=== PATIENT | female | born 1950 | race African-American/Black ===

== ENCOUNTER 2017-05-22 14:26 | Emergency (ER) | payer BC, MEDICAID ==
[~2017-05-22] VITALS: Ht 165.1 cm; Wt 70.9 kg
[~2017-05-22 14:26] MED LIST: ADV250 IH; ASPI-1182 PO; FOLI1TAB15 PO; HUM3INSU SQ; INS7030UN SQ; ISOS30TA11 PO; METF500T4 PO; METO25 PO; PERCT PO; ROSU20 PO; VALS160T2 PO
[2017-05-22 15:23] LABS: GLUCOSE,POINT OF CARE 99 MG/DL (70-110)
[2017-05-22] MEDS ORDERED: DEXTROSE 50%-WATER 25 GM/50 ML SYRINGE IVP ONE (15:30)
[2017-05-22 16:02] LABS: GLUCOSE,POINT OF CARE 231 MG/DL (70-110)
[2017-05-22 17:03] LABS: GLUCOSE,POINT OF CARE 252 MG/DL (70-110)
[2017-05-22 17:37] LABS: GLUCOSE,POINT OF CARE 225 MG/DL (70-110)
[2017-05-22 17:49] LABS: BASOPHILS % (AUTO) 0.4 % (0.0-2.0); EOSINOPHILS % (AUTO) 0.1 % (1.0-6.0); LYMPHOCYTES # (AUTO) 1.3 K/uL (1.0-4.8); LYMPHOCYTES % (AUTO) 14.9 % (22.0-44.0); MEAN CORPUSCULAR HEMOGLOBIN 30.2 pg (26.0-34.0); MEAN CORPUSCULAR HGB CONC 33.5 G/dL (31.0-37.0); MEAN CORPUSCULAR VOLUME 90 fL (80-100); MONOCYTES # (AUTO) 0.3 K/uL (0.1-1.0); MONOCYTES % (AUTO) 3.8 % (2.0-9.0); NEUTROPHILS # (AUTO) 7.1 K/uL (1.8-7.7); NEUTROPHILS % (AUTO) 80.8 % (40.0-70.0); PLATELET COUNT (AUTO) 205 K/uL (150-450); RED BLOOD CELL COUNT(AUTO) 3.98 MIL/uL (4.00-5.20); RED CELL DISTRIBUTION WIDTH 13.2 % (11.5-14.5)
[2017-05-22 18:03] LABS: CALCIUM, TOTAL 8.8 mg/dL (8.8-10.5); CREATININE 1.11 mg/dL (0.60-1.30); POTASSIUM 3.4 mmol/L (3.5-5.1)
[2017-05-22 18:09] LABS: ALBUMIN 3.3 g/dL (3.4-5.0); BILIRUBIN,TOTAL 0.3 mg/dL (0.1-1.0); TOTAL PROTEIN, SERUM 7.9 g/dL (6.4-8.2)
[2017-05-22 18:11] VITALS: BP 137/68
[2017-05-22 18:18] LABS: GLUCOSE,POINT OF CARE 257 MG/DL (70-110)
== END 2017-05-22 18:50 | disposition home or self-care (01) ==
LOC: EMS 14:27
DX: E11.649 Type 2 diabetes mellitus with hypoglycemia without coma (principal); I10 Essential (primary) hypertension; E78.00 Pure hypercholesterolemia, unspecified; E11.9 Type 2 diabetes mellitus without complications; I25.10 Atherosclerotic heart disease of native coronary artery without angina pectoris; Z79.4 Long term (current) use of insulin
CPT/HCPCS: 82962; 96374; 99284

== ENCOUNTER 2021-08-12 20:50 | Inpatient (IN) | payer MEDICARE, MEDICAID ==
[~2021-08-12] VITALS: Ht 157.5 cm; Wt 53.2 kg
[~2021-08-12 20:50] MED LIST changes: +7030E SQ; -ASPI-1182 PO; +ASPI-1444 PO; -INS7030UN SQ; +METF-1211 PO; -METF500T4 PO; -ROSU20 PO; +ROSU20TA73 PO
[2021-08-12 22:08] LABS: BASOPHILS % (AUTO) 0.1 % (0.0-2.0); EOSINOPHILS % (AUTO) 0 % (1.0-6.0); HEMATOCRIT 45.1 % (36-46); LYMPHOCYTES # (AUTO) 0.7 K/uL (1.0-4.8); MEAN CORPUSCULAR HEMOGLOBIN 30.3 pg (26.0-34.0); MEAN CORPUSCULAR HGB CONC 31.2 G/dL (31.0-37.0); MEAN CORPUSCULAR VOLUME 97 fL (80-100); MONOCYTES # (AUTO) 0.8 K/uL (0.1-1.0); MONOCYTES % (AUTO) 4.5 % (2.0-9.0); NEUTROPHILS # (AUTO) 16.6 K/uL (1.8-7.7); PLATELET COUNT (AUTO) 125 K/uL (150-450); RED BLOOD CELL COUNT(AUTO) 4.64 MIL/uL (4.00-5.20); RED CELL DISTRIBUTION WIDTH 13.9 % (11.5-14.5)
[2021-08-12 22:09] LABS: NEUTROPHILS % (AUTO) 91.4 % (40.0-70.0)
[2021-08-12 22:10] LABS: COVID AG,FIA SOURCE NASAL SWAB
[2021-08-12 22:13] LABS: ANION GAP 29 mmol/L (8-16); CALCIUM, TOTAL 10.9 mg/dL (8.8-10.5); CARBON DIOXIDE 21 mmol/L (22-29); CHLORIDE 96 mmol/L (98-107); CREATININE 2.89 mg/dL (0.60-1.30); GLOMERULAR FILTR. RATE CALC 20 mL/min (>60); POTASSIUM 4.3 mmol/L (3.5-5.1); SODIUM SERUM 146 mmol/L (136-145); UREA NITROGEN, BLOOD 53 mg/dL (7-18)
[2021-08-12] MEDS ORDERED: INSULIN REGULAR, HUMAN 100 UNITS/ML IVP ONE ×2 (22:15→23:45)
[2021-08-12] MEDS ORDERED: SODIUM CHLORIDE 0.9% 2,000 ML IV ONE (22:15)
[2021-08-12 22:22] LABS: INR 1.1 (0.9-1.1); PROTHROMBIN TIME 11.4 SEC (9.4-11.6)
[2021-08-12 22:28] LABS: LACTIC ACID 3.9 mmol/L (0.4-2.0)
[2021-08-12 22:30] LABS: ABG BASE EXCESS -9.1 mmol/L (-2.0-3.0); ABG CARBOXYHEMOGLOBIN 0.2 % (0.0-1.5); ABG HCO3 17.8 mmol/L (22.0-26.0); ABG METHEMOGLOBIN 0.3 % (0.0-1.5); ABG OXYGEN CONTENT 18.7 mL/dL (15.0-23.0); ABG OXYGEN SATURATION 96.3 % (95.0-98.0); ABG OXYHEMOGLOBIN 95.8 % (94.0-100.0); ABG PCO2 36 mmHg (35-45); ABG PH 7.299 (7.35-7.450); ABG TOTAL HEMOGLOBIN 13.8 G/dL (12.0-18.0); PO2, ARTERIAL BG 92.9 mmHg (79.0-87.0); SOURCE, BLOOD GAS ARTERIAL; TEMPERATURE, FAHRENHEIT, BG 97.8 FAHREN (96.0-98.6)
[2021-08-12 22:31] LABS: SITE, BLOOD GAS RT BRACHIAL
[2021-08-12 22:31] LABS: AMMONIA < 10 umol/L (11-32)
[2021-08-12 22:32] LABS: GLUCOSE,RANDOM 1143 mg/dL (70-110)
[2021-08-12 22:43] LABS: ALANINE AMINOTRANSFERASE 36 U/L (12-78); ALKALINE PHOSPHATASE 132 U/L (46-116); ASPARTATE AMINOTRANSFERASE 52 U/L (15-37); BILIRUBIN,TOTAL 0.6 mg/dL (0.1-1.0)
[2021-08-12 22:44] LABS: ALBUMIN 4.6 g/dL (3.4-5.0); B-TYPE NATRIURETIC PEPTIDE 29 pg/mL (0-100); CREATINE KINASE, TOTAL ONLY 495 U/L (26-192); TOTAL PROTEIN, SERUM 10.2 g/dL (6.4-8.2)
[2021-08-12 22:51] LABS: GLUCOMETER DEV NAME(LOC) ERT.5; GLUCOSE,POINT OF CARE > 600 MG/DL (70-110)
[2021-08-12] MEDS ORDERED: SODIUM CHLORIDE 0.45% 1,000 ML IV PRN (23:45)
[2021-08-12] MEDS ORDERED: SODIUM CHLORIDE 0.9% 1,000 ML IV SCH (23:45)
[2021-08-12] MEDS ORDERED: DEXTROSE 50%-WATER 25 GM/50 ML SYRINGE IVP PRN (23:45)
[2021-08-12] MEDS ORDERED: INSULIN REGULAR, HUMAN 100 UNITS in SODIUM CHLORIDE 0.9% 99 ML IV PRN ×2 (23:45)
[2021-08-12] MEDS ORDERED: POTASSIUM CHL 20 MEQ/0.45% NS 1,000 ML IV PRN (23:45)
[2021-08-12] MEDS ORDERED: DEXTROSE 5%-0.45% SODIUM CHL 1,000 ML IV PRN (23:45)
[2021-08-12] MEDS ORDERED: POTASSIUM CHLORIDE 40 MEQ in SODIUM CHLORIDE 0.45% 1,000 ML IV PRN (23:45)
[2021-08-12] MEDS ORDERED: ONDANSETRON HCL 4 MG/2 ML VIAL IVP PRN (23:45)
[2021-08-13 00:11] LABS: GLUCOMETER DEV NAME(LOC) ERT.5; GLUCOSE,POINT OF CARE > 600 MG/DL (70-110)
[2021-08-13 00:26] LABS: APPEARANCE,URINE CLEAR (CLEAR); BILIRUBIN,URINE NEGATIVE (NEGATIVE); GLUCOSE, URINE (UA) >=1000 mg/dL (NEGATIVE); LEUKOCYTE ESTERASE ,URINE NEGATIVE (NEGATIVE); NITRATE,URINE NEGATIVE (NEGATIVE); OCCULT BLOOD,URINE LARGE (NEGATIVE); PROTEIN,URINE 30-70 mg/dL (NEGATIVE); UROBILINOGEN,URINE <=1.0 mg/dL (<=1.0)
[2021-08-13 00:32] LABS: AMPHET/METH SCREEN,URINE NEGATIVE (NEGATIVE); BARBITURATE SCREEN, URINE NEGATIVE (NEGATIVE); BENZODIAZEPINES SCREEN,URINE NEGATIVE (NEGATIVE); CANNABINOID SCREEN,URINE NEGATIVE (NEGATIVE); COCAINE SCREEN,URINE NEGATIVE (NEGATIVE); METHADONE SCREEN, URINE NEGATIVE (NEGATIVE); OPIATE SCREEN,URINE NEGATIVE (NEGATIVE)
[2021-08-13 00:35] LABS: PHENCYCLIDINE SCREEN,URINE NEGATIVE (NEGATIVE)
[2021-08-13 00:53] LABS: BACTERIA,URINE Rare /HPF (None Seen); SQUAMOUS EPITHELIAL CELL,UR Rare /LPF (None Seen)
[2021-08-13] MEDS: HEPARIN SODIUM,PORCINE 5,000 UNITS/ML VIAL SQ SCH ×3 (00:53→16:00)
[2021-08-13 00:54] LABS: AMORPHOUS SEDIMENT,UR Rare /LPF (None Seen)
[2021-08-13] MEDS ORDERED: CefTRIAXone 1 GM/DEXTROSE 50 ML IV SCH (01:00)
[2021-08-13 01:07] LABS: CALCIUM, TOTAL 9.3 mg/dL (8.8-10.5); CREATININE 2.37 mg/dL (0.60-1.30); POTASSIUM 3.3 mmol/L (3.5-5.1)
[2021-08-13] MEDS ORDERED: *CLINICAL-CEFEPIME DOSING CLINICAL ONE (01:15)
[2021-08-13] MEDS ORDERED: VANCOMYCIN HCL 1.25 GM in DEXTROSE 5%-WATER 250 ML IV ONE (02:00)
[2021-08-13] MEDS ORDERED: VANCOMYCIN 1GM/WATER(PEG/NADA) 200 ML IV PRN (02:00)
[2021-08-13 02:01] LABS: GLUCOMETER DEV NAME(LOC) ERT.5; GLUCOSE,POINT OF CARE 564 MG/DL (70-110)
[2021-08-13 02:01] LABS: GLUCOMETER DEV NAME(LOC) ERT.5; GLUCOSE,POINT OF CARE 454 MG/DL (70-110)
[2021-08-13] MEDS: INSULIN REGULAR, HUMAN 100 UNITS/ML IVP PRN ×3 (03:06→06:10)
[2021-08-13 03:16] LABS: GLUCOMETER DEV NAME(LOC) ERT.5; GLUCOSE,POINT OF CARE 468 MG/DL (70-110)
[2021-08-13 04:11] LABS: GLUCOMETER DEV NAME(LOC) ERT.5; GLUCOSE,POINT OF CARE 324 MG/DL (70-110)
[2021-08-13 05:16] LABS: GLUCOMETER DEV NAME(LOC) ERT.5; GLUCOSE,POINT OF CARE 277 MG/DL (70-110)
[2021-08-13 05:47] LABS: ALBUMIN 3.4 g/dL (3.4-5.0); BILIRUBIN,TOTAL 0.3 mg/dL (0.1-1.0); CALCIUM, TOTAL 8.9 mg/dL (8.8-10.5); CREATININE 1.67 mg/dL (0.60-1.30); MAGNESIUM 2.7 mg/dL (1.80-2.40); PHOSPHORUS 1.6 mg/dL (2.5-4.9); POTASSIUM 3.1 mmol/L (3.5-5.1); TOTAL PROTEIN, SERUM 7.9 g/dL (6.4-8.2)
[2021-08-13] MEDS: CEFEPIME HCL 1 GM in DEXTROSE 5%-WATER 50 ML IV SCH (05:54)
[2021-08-13 06:16] LABS: GLUCOMETER DEV NAME(LOC) ERT.5; GLUCOSE,POINT OF CARE 286 MG/DL (70-110)
[2021-08-13] MEDS: POTASSIUM CHLORIDE 40 MEQ in DEXTROSE 5%-WATER 1,000 ML IV SCH ×2 (07:08→14:03)
[2021-08-13 07:21] LABS: GLUCOMETER DEV NAME(LOC) ERT.5; GLUCOSE,POINT OF CARE 145 MG/DL (70-110)
[2021-08-13 08:16] LABS: GLUCOMETER DEV NAME(LOC) ERT.5; GLUCOSE,POINT OF CARE 152 MG/DL (70-110)
[2021-08-13 09:00] VITALS: BP 127/75
[2021-08-13 10:11] LABS: GLUCOMETER DEV NAME(LOC) AHU.; GLUCOSE,POINT OF CARE 144 MG/DL (70-110)
[2021-08-13 10:13] LABS: CALCIUM, TOTAL 9.2 mg/dL (8.8-10.5); CREATININE 1.46 mg/dL (0.60-1.30); POTASSIUM 3.8 mmol/L (3.5-5.1)
[2021-08-13 12:02] VITALS: BP 139/75
[2021-08-13 12:17] LABS: GLUCOSE,POINT OF CARE 154 MG/DL (70-110)
[2021-08-13 12:17] LABS: GLUCOMETER DEV NAME(LOC) AHU.; GLUCOSE,POINT OF CARE 154 MG/DL (70-110)
[2021-08-13 13:47] LABS: CREATININE 1.26 mg/dL (0.60-1.30)
[2021-08-13 14:11] LABS: GLUCOSE,POINT OF CARE 146 MG/DL (70-110)
[2021-08-13 16:00] VITALS: BP 135/71
[2021-08-13] MEDS ORDERED: POTASSIUM PHOS,M-BASIC-D-BASIC 10 MMOL in DEXTROSE 5%-WATER 100 ML IV ONE (19:00)
[2021-08-13] MEDS ORDERED: SODIUM CHLORIDE 0.9% 250 ML IV ONE (19:22)
[2021-08-13 20:00] VITALS: BP 118/69
[2021-08-14] VITALS: BP 110/62
[2021-08-14] MEDS: ACETAMINOPHEN 325 MG TABLET PO PRN ×2 (01:47→20:36)
[2021-08-14 02:06] LABS: GLUCOMETER DEV NAME(LOC) AHU.; GLUCOSE,POINT OF CARE 168 MG/DL (70-110)
[2021-08-14 02:06] LABS: GLUCOMETER DEV NAME(LOC) AHU.; GLUCOSE,POINT OF CARE 117 MG/DL (70-110)
[2021-08-14 04:00] VITALS: BP 113/65
[2021-08-14] MEDS: CEFEPIME HCL 1 GM in DEXTROSE 5%-WATER 50 ML IV SCH (05:46)
[2021-08-14 06:29] LABS: PHOSPHORUS 2.7 mg/dL (2.5-4.9)
[2021-08-14] MEDS ORDERED: DEXTROSE 50%-WATER 25 GM/50 ML SYRINGE IVP PRN (06:45)
[2021-08-14] MEDS: INSULIN LISPRO 100 UNITS/ML SQ PRN ×3 (06:45→17:42)
[2021-08-14 07:11] LABS: GLUCOMETER DEV NAME(LOC) AHU.; GLUCOSE,POINT OF CARE 348 MG/DL (70-110)
[2021-08-14 08:00] VITALS: BP 110/78
[2021-08-14] MEDS: HEPARIN SODIUM,PORCINE 5,000 UNITS/ML VIAL SQ SCH ×4 (08:00→23:19)
[2021-08-14] MEDS ORDERED: VANCOMYCIN 1GM/WATER(PEG/NADA) 200 ML IV SCH (08:00)
[2021-08-14 08:23] LABS: EOSINOPHILS % (AUTO) 0.1 % (1.0-6.0); HEMOGLOBIN 11.7 g/dL (12.0-16.0); MONOCYTES # (AUTO) 0.5 K/uL (0.1-1.0); NEUTROPHILS # (AUTO) 11.6 K/uL (1.8-7.7); RED CELL DISTRIBUTION WIDTH 13.8 % (11.5-14.5)
[2021-08-14 08:31] LABS: ALBUMIN 2.9 g/dL (3.4-5.0); BILIRUBIN,TOTAL 0.5 mg/dL (0.1-1.0); CALCIUM, TOTAL 8.8 mg/dL (8.8-10.5); CREATININE 1.34 mg/dL (0.60-1.30); POTASSIUM 4.6 mmol/L (3.5-5.1); TOTAL PROTEIN, SERUM 7.1 g/dL (6.4-8.2)
[2021-08-14 08:32] LABS: BASOPHILS % (AUTO) 0.2 % (0.0-2.0); HEMATOCRIT 36.3 % (36-46); LYMPHOCYTES # (AUTO) 2.3 K/uL (1.0-4.8); LYMPHOCYTES % (AUTO) 15.9 % (22.0-44.0); MEAN CORPUSCULAR HEMOGLOBIN 30.1 pg (26.0-34.0); MEAN CORPUSCULAR HGB CONC 32.3 G/dL (31.0-37.0); MEAN CORPUSCULAR VOLUME 93 fL (80-100); MONOCYTES % (AUTO) 3.4 % (2.0-9.0); NEUTROPHILS % (AUTO) 80.4 % (40.0-70.0); RED BLOOD CELL COUNT(AUTO) 3.89 MIL/uL (4.00-5.20)
[2021-08-14 09:01] LABS: GLUCOSE,POINT OF CARE 83 MG/DL (70-110)
[2021-08-14 09:24] LABS: PLATELET COUNT (AUTO) 149 K/uL (150-450)
[2021-08-14 09:56] LABS: MAGNESIUM 2.3 mg/dL (1.80-2.40)
[2021-08-14] MEDS: DOCUSATE SODIUM 100 MG CAPSULE PO SCH (10:31)
[2021-08-14] MEDS: INSULIN GLARGINE,HUM.REC.ANLOG 100 UNITS/ML SQ SCH ×2 (11:31→20:40)
[2021-08-14 11:51] LABS: GLUCOSE,POINT OF CARE 395 MG/DL (70-110)
[2021-08-14 12:00] VITALS: BP 146/75
[2021-08-14 16:00] VITALS: BP 121/65
[2021-08-14 18:01] LABS: GLUCOSE,POINT OF CARE 171 MG/DL (70-110)
[2021-08-14] MEDS ORDERED: CEFEPIME HCL 2 GM in DEXTROSE 5%-WATER 50 ML IV SCH (20:00)
[2021-08-14 20:18] VITALS: BP 131/93
[2021-08-15 04:31] LABS: GLUCOMETER DEV NAME(LOC) 6N.2; GLUCOSE,POINT OF CARE 114 MG/DL (70-110)
[2021-08-15 04:54] VITALS: BP 122/71
[2021-08-15] MEDS: INSULIN LISPRO 100 UNITS/ML SQ PRN ×3 (06:34→20:42)
[2021-08-15 07:06] LABS: GLUCOMETER DEV NAME(LOC) 6N.1; GLUCOSE,POINT OF CARE 248 MG/DL (70-110)
[2021-08-15] MEDS: HEPARIN SODIUM,PORCINE 5,000 UNITS/ML VIAL SQ SCH ×3 (08:00→23:10)
[2021-08-15] MEDS: DOCUSATE SODIUM 100 MG CAPSULE PO SCH (08:00)
[2021-08-15] MEDS: INSULIN GLARGINE,HUM.REC.ANLOG 100 UNITS/ML SQ SCH ×2 (08:01→20:40)
[2021-08-15 08:27] VITALS: BP 126/69
[2021-08-15 11:57] LABS: ANION GAP 8 mmol/L (8-16); CALCIUM, TOTAL 9.2 mg/dL (8.8-10.5); CARBON DIOXIDE 29 mmol/L (22-29); CHLORIDE 106 mmol/L (98-107); CREATININE 0.85 mg/dL (0.60-1.30); GLOMERULAR FILTR. RATE CALC > 60 mL/min (>60); GLUCOSE,RANDOM 233 mg/dL (70-110); POTASSIUM 4.1 mmol/L (3.5-5.1); SODIUM SERUM 143 mmol/L (136-145); UREA NITROGEN, BLOOD 17 mg/dL (7-18)
[2021-08-15 12:06] LABS: GLUCOMETER DEV NAME(LOC) 6N.2; GLUCOSE,POINT OF CARE 241 MG/DL (70-110)
[2021-08-15 15:36] VITALS: BP 133/85
[2021-08-15 17:31] LABS: GLUCOMETER DEV NAME(LOC) 6N.1; GLUCOSE,POINT OF CARE 115 MG/DL (70-110)
[2021-08-15] MEDS ORDERED: INSLAN SQ (18:55)
[2021-08-15 20:04] VITALS: BP 133/74
[2021-08-16 01:48] LABS: APPEARANCE,URINE CLEAR (CLEAR); BILIRUBIN,URINE NEGATIVE (NEGATIVE); GLUCOSE, URINE (UA) 150-200 mg/dL (NEGATIVE); KETONES,URINE TRACE mg/dL (NEGATIVE); LEUKOCYTE ESTERASE ,URINE LARGE (NEGATIVE); NITRATE,URINE NEGATIVE (NEGATIVE); OCCULT BLOOD,URINE SMALL (NEGATIVE); PH,URINE 5.5 (5.0-8.0); PROTEIN,URINE TRACE mg/dL (NEGATIVE); SPECIFIC GRAVITIY, URINE 1.015 (1.003-1.030); UROBILINOGEN,URINE <=1.0 mg/dL (<=1.0)
[2021-08-16 01:53] LABS: BACTERIA,URINE None Seen /HPF (None Seen)
[2021-08-16 04:30] VITALS: BP 129/65
[2021-08-16 05:36] LABS: GLUCOMETER DEV NAME(LOC) 6N.2; GLUCOSE,POINT OF CARE 225 MG/DL (70-110)
[2021-08-16] MEDS: INSULIN LISPRO 100 UNITS/ML SQ PRN ×2 (06:45→11:41)
[2021-08-16 07:06] LABS: GLUCOMETER DEV NAME(LOC) 6N.2; GLUCOSE,POINT OF CARE 161 MG/DL (70-110)
[2021-08-16 07:11] LABS: ANION GAP 9 mmol/L (8-16); CALCIUM, TOTAL 8.9 mg/dL (8.8-10.5); CARBON DIOXIDE 26 mmol/L (22-29); CHLORIDE 106 mmol/L (98-107); CREATININE 0.77 mg/dL (0.60-1.30); GLOMERULAR FILTR. RATE CALC > 60 mL/min (>60); GLUCOSE,RANDOM 192 mg/dL (70-110); POTASSIUM 3.9 mmol/L (3.5-5.1); SODIUM SERUM 141 mmol/L (136-145); UREA NITROGEN, BLOOD 13 mg/dL (7-18)
[2021-08-16 08:00] VITALS: BP 110/68
[2021-08-16] MEDS: DOCUSATE SODIUM 100 MG CAPSULE PO SCH (08:18)
[2021-08-16] MEDS: HEPARIN SODIUM,PORCINE 5,000 UNITS/ML VIAL SQ SCH ×2 (08:18→16:00)
[2021-08-16] MEDS: INSULIN GLARGINE,HUM.REC.ANLOG 100 UNITS/ML SQ SCH (08:20)
[2021-08-16] MEDS ORDERED: CEPH-558 PO (10:33)
[2021-08-16 11:51] LABS: GLUCOMETER DEV NAME(LOC) 6N.2; GLUCOSE,POINT OF CARE 164 MG/DL (70-110)
[2021-08-16 16:10] VITALS: BP 118/63
== END 2021-08-16 17:50 | disposition home health service (06) | DRG 637 ==
LOC: EMS 20:58 → ICU 08-13 06:23 → 6S 08-14 20:05
PROVIDERS: ADMIT Internal Medicine; ATTEND Internal Medicine
DX: E11.00 Type 2 diabetes mellitus with hyperosmolarity without nonketotic hyperglycemic-hyperosmolar coma (NKHHC) (principal); R65.11 Systemic inflammatory response syndrome (SIRS) of non-infectious origin with acute organ dysfunction; G92.8 Other toxic encephalopathy; E87.0 Hyperosmolality and hypernatremia; N17.9 Acute kidney failure, unspecified; E87.1 Hypo-osmolality and hyponatremia; E11.10 Type 2 diabetes mellitus with ketoacidosis without coma; I11.9 Hypertensive heart disease without heart failure; E83.39 Other disorders of phosphorus metabolism; D69.6 Thrombocytopenia, unspecified; I25.10 Atherosclerotic heart disease of native coronary artery without angina pectoris; Z20.822 Contact with and (suspected) exposure to COVID-19; E78.00 Pure hypercholesterolemia, unspecified; E78.5 Hyperlipidemia, unspecified; Z79.4 Long term (current) use of insulin; Z79.84 Long term (current) use of oral hypoglycemic drugs; Z79.899 Other long term (current) drug therapy; Z85.3 Personal history of malignant neoplasm of breast; Z90.710 Acquired absence of both cervix and uterus; Z90.49 Acquired absence of other specified parts of digestive tract
CPT/HCPCS: 36600; 51702; 70450; 71045; 76770; 80048; 80053; 81001; 82009; 82140; 82550; 82805; 82962; 83605; 83735; 83880; 84100; 84484; 85025; 85610; 85730; 87040; 87081; 87086; 93005; 97162; 97166; 97535; 99291; 99292; G0378; G0480; J0692; J0696; J1644; J1815; J2405; J3370; J3480; J3490; J7050; J7060; Q9967; 36415-L1; 36415-TC